=== PATIENT | female | born 1960 | race African-American/Black ===

== ENCOUNTER 2016-04-06 18:39 | Emergency (ER) | payer OTHER ==
[~2016-04-06] VITALS: Ht 160 cm; Wt 57.0 kg
[~2016-04-06 18:39] MED LIST: BISA5TAB12 PO; CYCL10 PO; DSS100 PO; DULO30CA51 PO; GABA-531 PO; HYDR-3705 PO; LORA10TA7 PO; SUMA100T16 PO
[2016-04-06 20:29] VITALS: BP 132/76
[2016-04-06] MEDS ORDERED: KETOROLAC TROMETHAMINE 60 MG/2 ML VIAL IM ONE (20:45)
[2016-04-06] MEDS ORDERED: OxyCODONE HCL/ACETAMINOPHEN 5-325 MG TABLET PO ONE (20:45)
== END 2016-04-06 20:56 | disposition home or self-care (01) ==
LOC: EMS 18:41
DX: S16.1XXA Strain of muscle, fascia and tendon at neck level, initial encounter (principal); V43.92XA Unspecified car occupant injured in collision with other type car in traffic accident, initial encounter; Y93.89 Activity, other specified; Y92.89 Other specified places as the place of occurrence of the external cause; Y99.8 Other external cause status
CPT/HCPCS: 96372; 99283; J1885

== ENCOUNTER 2016-06-02 08:21 | Emergency (ER) | payer OTHER ==
[~2016-06-02] VITALS: Ht 160 cm; Wt 69.0 kg
[2016-06-02 11:37] VITALS: BP 129/72
== END 2016-06-02 12:31 | disposition home or self-care (01) ==
LOC: EMS 08:22
DX: J06.9 Acute upper respiratory infection, unspecified (principal); E01.0 Iodine-deficiency related diffuse (endemic) goiter
CPT/HCPCS: 71020; 99284

== ENCOUNTER 2016-11-03 14:22 | Emergency (ER) | payer OTHER ==
[~2016-11-03] VITALS: Ht 160 cm; Wt 68.2 kg
[2016-11-03] MEDS ORDERED: SODIUM CHLORIDE 0.9% 1,000 ML IV ONE (16:15)
[2016-11-03] MEDS ORDERED: LOPERAMIDE HCL 2 MG CAPSULE PO ONE (16:30)
[2016-11-03 16:34] LABS: BASOPHILS % (AUTO) 0.2 % (0.0-2.0); EOSINOPHILS % (AUTO) 1.1 % (1.0-6.0); HEMATOCRIT 37.9 % (36-46); HEMOGLOBIN 12.7 g/dL (12.0-16.0); LYMPHOCYTES # (AUTO) 1.6 K/uL (1.0-4.8); LYMPHOCYTES % (AUTO) 18.5 % (22.0-44.0); MEAN CORPUSCULAR HEMOGLOBIN 30.2 pg (26.0-34.0); MEAN CORPUSCULAR HGB CONC 33.4 G/dL (31.0-37.0); MEAN CORPUSCULAR VOLUME 90 fL (80-100); MONOCYTES # (AUTO) 0.6 K/uL (0.1-1.0); MONOCYTES % (AUTO) 7.1 % (2.0-9.0); NEUTROPHILS # (AUTO) 6.1 K/uL (1.8-7.7); NEUTROPHILS % (AUTO) 73.1 % (40.0-70.0); PLATELET COUNT (AUTO) 316 K/uL (150-450); RED BLOOD CELL COUNT(AUTO) 4.19 MIL/uL (4.00-5.20); RED CELL DISTRIBUTION WIDTH 15.2 % (11.5-14.5); WHITE BLOOD COUNT (AUTO) 8.4 K/uL (4.5-11.0)
[2016-11-03 16:46] LABS: ANION GAP 8 mmol/L (8-16); CALCIUM, TOTAL 8.8 mg/dL (8.8-10.5); CARBON DIOXIDE 28 mmol/L (22-29); CHLORIDE 103 mmol/L (98-107); CREATININE 1.12 mg/dL (0.60-1.30); GLOMERULAR FILTR. RATE CALC > 60 mL/min (>60); POTASSIUM 3.7 mmol/L (3.5-5.1); SODIUM SERUM 139 mmol/L (136-145); UREA NITROGEN, BLOOD 19 mg/dL (7-18)
[2016-11-03 16:52] LABS: ALANINE AMINOTRANSFERASE 23 U/L (12-78); ALBUMIN 3.7 g/dL (3.4-5.0); ASPARTATE AMINOTRANSFERASE 14 U/L (15-37); BILIRUBIN,TOTAL 0.6 mg/dL (0.1-1.0); TOTAL PROTEIN, SERUM 7.4 g/dL (6.4-8.2)
[2016-11-03 17:50] LABS: URIC ACID 6.1 mg/dL (2.6-7.2)
[2016-11-03 18:32] VITALS: BP 109/57
== END 2016-11-03 19:07 | disposition home or self-care (01) ==
LOC: EMS 14:24
DX: R19.7 Diarrhea, unspecified (principal); M19.072 Primary osteoarthritis, left ankle and foot
CPT/HCPCS: 29540; 36415; 73610; 80053; 84550; 85025; 96360; 99285; J7030

== ENCOUNTER 2017-05-25 11:22 | Emergency (ER) | payer OTHER ==
[~2017-05-25] VITALS: Ht 160 cm; Wt 81.5 kg
[2017-05-25] MEDS ORDERED: GABA-531 PO (11:51)
[2017-05-25] MEDS ORDERED: CYCL10 PO (11:51)
[2017-05-25 12:32] VITALS: BP 137/37
[2017-05-25] MEDS ORDERED: GuaiFENesin/D-METHORPHAN [SUGAR-FREE] 200-20MG/10 ML SYRUP UDCUP PO ONE (12:45)
[2017-05-25] MEDS ORDERED: KETOROLAC TROMETHAMINE 60 MG/2 ML VIAL IM ONE (12:45)
== END 2017-05-25 13:43 | disposition home or self-care (01) ==
LOC: EMS 11:24
DX: S46.912A Strain of unspecified muscle, fascia and tendon at shoulder and upper arm level, left arm, initial encounter (principal); S16.1XXA Strain of muscle, fascia and tendon at neck level, initial encounter; J02.9 Acute pharyngitis, unspecified; V47.5XXA Car driver injured in collision with fixed or stationary object in traffic accident, initial encounter; Y93.89 Activity, other specified; Y92.89 Other specified places as the place of occurrence of the external cause; Y99.8 Other external cause status
CPT/HCPCS: 96372; 99283; J1885

== ENCOUNTER 2017-07-14 08:08 | Emergency (ER) | payer OTHER ==
[~2017-07-14] VITALS: Ht 160 cm; Wt 86.4 kg
[~2017-07-14 08:08] MED LIST changes: -BISA5TAB12 PO; -DSS100 PO; -DULO30CA51 PO; -HYDR-3705 PO; -LORA10TA7 PO; -SUMA100T16 PO
[2017-07-14] MEDS ORDERED: IBUP-2071 PO (08:34)
[2017-07-14] MEDS ORDERED: [UNRECOGNIZED DRUG - REMARK] INJ (08:35)
[2017-07-14] MEDS ORDERED: ONDANSETRON HCL 4 MG/2 ML VIAL IVP ONE (09:15)
[2017-07-14] MEDS ORDERED: SODIUM CHLORIDE 0.9% 1,000 ML IV ONE (09:15)
[2017-07-14] MEDS ORDERED: MECLIZINE HCL 25 MG TABLET PO ONE (09:15)
[2017-07-14 09:39] LABS: BASOPHILS % (AUTO) 0.3 % (0.0-2.0); EOSINOPHILS % (AUTO) 0.6 % (1.0-6.0); HEMATOCRIT 35.6 % (36-46); HEMOGLOBIN 12.1 g/dL (12.0-16.0); LYMPHOCYTES # (AUTO) 1.4 K/uL (1.0-4.8); LYMPHOCYTES % (AUTO) 17.9 % (22.0-44.0); MEAN CORPUSCULAR HEMOGLOBIN 29.9 pg (26.0-34.0); MEAN CORPUSCULAR VOLUME 88 fL (80-100); MONOCYTES # (AUTO) 0.5 K/uL (0.1-1.0); MONOCYTES % (AUTO) 6.1 % (2.0-9.0); NEUTROPHILS # (AUTO) 5.7 K/uL (1.8-7.7); NEUTROPHILS % (AUTO) 75.1 % (40.0-70.0); PLATELET COUNT (AUTO) 302 K/uL (150-450); RED BLOOD CELL COUNT(AUTO) 4.05 MIL/uL (4.00-5.20); RED CELL DISTRIBUTION WIDTH 13.7 % (11.5-14.5)
[2017-07-14 09:41] LABS: ANION GAP 7 mmol/L (8-16); CALCIUM, TOTAL 9.5 mg/dL (8.8-10.5); CARBON DIOXIDE 29 mmol/L (22-29); CHLORIDE 105 mmol/L (98-107); CREATININE 0.92 mg/dL (0.60-1.30); GLOMERULAR FILTR. RATE CALC > 60 mL/min (>60); GLUCOSE,RANDOM 108 mg/dL (70-110); POTASSIUM 3.8 mmol/L (3.5-5.1); SODIUM SERUM 141 mmol/L (136-145); UREA NITROGEN, BLOOD 11 mg/dL (7-18)
[2017-07-14 09:48] LABS: ALANINE AMINOTRANSFERASE 32 U/L (12-78); ALBUMIN 3.9 g/dL (3.4-5.0); ALKALINE PHOSPHATASE 109 U/L (46-116); ASPARTATE AMINOTRANSFERASE 24 U/L (15-37); BILIRUBIN,TOTAL 0.5 mg/dL (0.1-1.0); TOTAL PROTEIN, SERUM 7.9 g/dL (6.4-8.2)
[2017-07-14 11:30] VITALS: BP 138/76
== END 2017-07-14 12:37 | disposition home or self-care (01) ==
LOC: EMS 08:09
DX: R42 Dizziness and giddiness (principal); M25.519 Pain in unspecified shoulder; M25.539 Pain in unspecified wrist; G89.29 Other chronic pain
CPT/HCPCS: 36415; 70450; 80053; 85025; 93005; 96374; 99285; J2405; J7030

== ENCOUNTER 2019-01-31 11:59 | Emergency (ER) | payer MEDICAID, OTHER ==
[~2019-01-31] VITALS: Ht 160 cm; Wt 85.9 kg
[~2019-01-31 11:59] MED LIST changes: -CYCL10 PO; +IBUP-2071 PO; +[UNRECOGNIZED DRUG - REMARK] INJ
[2019-01-31] MEDS ORDERED: PROP10TA10 PO (12:23)
[2019-01-31] MEDS ORDERED: TRAM50TA4 PO (12:23)
[2019-01-31] MEDS ORDERED: SUMA50TA PO (12:23)
[2019-01-31] MEDS ORDERED: TOPI25CA PO (12:23)
[2019-01-31] MEDS ORDERED: SUMAtriptan SUCCINATE 6 MG/0.5 ML VIAL SQ ONE (12:45)
[2019-01-31 12:56] VITALS: BP 161/88
== END 2019-01-31 12:53 | disposition left against medical advice (07) ==
LOC: EMS 12:05
DX: G43.909 Migraine, unspecified, not intractable, without status migrainosus (principal); F32.9 Major depressive disorder, single episode, unspecified
CPT/HCPCS: 96372; 99283; J3030